=== PATIENT | female | born 1995 | race African-American/Black ===

== ENCOUNTER 2018-08-09 21:54 | Emergency (ER) | payer OTHER ==
[~2018-08-09] VITALS: Ht 165.1 cm; Wt 77.1 kg
[2018-08-09] MEDS ORDERED: PROPRANOLOL 1010 MG (22:03)
[2018-08-09] MEDS ORDERED: PENICILLIN VK500 MG PO (22:39)
[2018-08-09] MEDS ORDERED: DIFLUCAN150 M1 PO (22:39)
[2018-08-09 23:00] VITALS: BP 106/52
== END 2018-08-09 23:03 | disposition home or self-care (01) ==
LOC: M.ERS 21:54
DX: J02.0 Streptococcal pharyngitis (principal); J45.909 Unspecified asthma, uncomplicated; I10 Essential (primary) hypertension